=== PATIENT | female | born 1935 | race Caucasian/White ===

== ENCOUNTER 2017-02-21 17:04 | Inpatient (IN) | payer MEDICARE, OTHER ==
[~2017-02-21] VITALS: Ht 165.1 cm; Wt 63.0 kg
[2017-02-21] MEDS ORDERED: SODIUM CHLORIDE 0.9% 500 ML IV ONE (17:41)
[2017-02-21 18:20] LABS: BASOPHILS % 0.3 % (0.0-2.0); EOSINOPHILS % 3.4 % (0.0-5.0); HEMATOCRIT. 34.7 % (36.0-48.0); HEMOGLOBIN. 11.8 g/dL (12.0-16.0); LYMPHOCYTES % 16.2 % (20.0-50.0); MEAN CORPUSCULAR HEMOGLOBIN 29.3 pg (28.0-32.0); MEAN CORPUSCULAR VOLUME 86.1 fL (81.0-99.0); MEAN PLATELET VOLUME 7.5 fl (7.4-10.4); MONOCYTES % 7.4 % (2.0-8.0); NEUTROPHILS % 72.7 % (40.0-76.0); PLATELET 238 x1000/uL (130-400); RED BLOOD CELL COUNT 4.03 mill/uL (4.2-5.4); RED CELL DISTRIBUTION WIDTH 13.7 % (11.6-14.6)
[2017-02-21 18:23] LABS: PARTIAL THROMBOPLASTIN TIME 22.6 sec (23.4-31.0); PROTHROMBIN TIME 10.4 sec (9.4-11.6)
[2017-02-21 18:33] LABS: CARBON DIOXIDE 27 mEq/L (21-32); CHLORIDE 102 mEq/L (98-107)
[2017-02-21 18:37] LABS: CREATINE KINASE MB FRACTION 0.7 ng/mL (0.5-3.6); TROPONIN I < 0.02 ng/mL (0.00-0.04)
[2017-02-21] MEDS ORDERED: ASPIRIN 325MG EC TABLET PO ONE (19:45)
[2017-02-21 22:20] VITALS: BP 128/59
[2017-02-21 23:04] VITALS: BP 128/56
[2017-02-21 23:05] VITALS: BP 128/56
[2017-02-21] MEDS ORDERED: CHOL100044 PO (23:29)
[2017-02-21] MEDS ORDERED: CLON0.5T4 PO (23:29)
[2017-02-21] MEDS ORDERED: DESV50TA4 PO (23:29)
[2017-02-21] MEDS ORDERED: ASPI-986 PO (23:29)
[2017-02-21] MEDS ORDERED: METF-516 PO (23:29)
[2017-02-21] MEDS ORDERED: ROSU20TA PO (23:29)
[2017-02-21] MEDS ORDERED: ASCO-316 PO (23:29)
[2017-02-21] MEDS ORDERED: IRON1CAP21 PO (23:29)
[2017-02-21] MEDS ORDERED: IBUP200C5 PO (23:30)
[2017-02-21] MEDS ORDERED: ACETAMINOPHEN 325MG TABLET PO PRN (23:45)
[2017-02-21] MEDS ORDERED: DIPHENHYDRAMINE 50MG/ML VIAL IV PRN (23:45)
[2017-02-21] MEDS ORDERED: CLONIDINE 0.1MG TABLET PO PRN (23:45)
[2017-02-21] MEDS ORDERED: MAGNESIUM/ALUMINUM HYDROXIDE/SIMETHICONE 30ML UDC PO PRN (23:45)
[2017-02-21] MEDS ORDERED: ONDANSETRON HCL 4MG/2ML VIAL IV PRN (23:45)
[2017-02-22] VITALS: BP 124/53
[2017-02-22 04:00] VITALS: BP 128/58
[2017-02-22] MEDS: SODIUM CHLORIDE 0.9% INJ 3ML FLUSH IVF SCH ×2 (06:30→14:04)
[2017-02-22 08:00] VITALS: BP 135/60
[2017-02-22] MEDS ORDERED: ASPIRIN 325MG TABLET PO SCH (09:00)
[2017-02-22] MEDS ORDERED: CHOLECALCIFEROL (D3) 1000 UNIT TABLET PO SCH (09:00)
[2017-02-22] MEDS ORDERED: CLONAZEPAM 0.5MG TABLET PO PRN (09:00)
[2017-02-22 11:52] VITALS: BP 136/70
[2017-02-22 16:00] VITALS: BP 127/55
== END 2017-02-22 18:06 | disposition home or self-care (01) | DRG 69 ==
LOC: ER 17:32 → 5WST 20:07 → EDBEDREQ 20:13 → ENRESERV 21:21
PROVIDERS: ADMIT Internal Medicine; ATTEND Internal Medicine
DX: G45.9 Transient cerebral ischemic attack, unspecified (principal); E11.9 Type 2 diabetes mellitus without complications; E78.00 Pure hypercholesterolemia, unspecified; E78.5 Hyperlipidemia, unspecified; I10 Essential (primary) hypertension; H91.90 Unspecified hearing loss, unspecified ear; F32.9 Major depressive disorder, single episode, unspecified; Z60.2 Problems related to living alone; Z96.652 Presence of left artificial knee joint; Z80.0 Family history of malignant neoplasm of digestive organs; Z82.3 Family history of stroke; Z90.49 Acquired absence of other specified parts of digestive tract; Z98.49 Cataract extraction status, unspecified eye; Z79.899 Other long term (current) drug therapy; Z79.82 Long term (current) use of aspirin
CPT/HCPCS: 36415; 70450; 70544; 70551; 71010; 80053; 80061; 82553; 82962; 83036; 84443; 84484; 85025; 85610; 85651; 85730; 93005; 93880; 96360; 99285; J7040